=== PATIENT | female | born 1975 | race Caucasian/White ===

== ENCOUNTER 2017-11-26 06:41 | Emergency (ER) | payer MEDICAID ==
[2017-11-26 06:51] VITALS: BP 123/86
--- NOTE | 2017-11-26 07:13 | ED Physician Documentation ---
PD HPI HEENT - Stated complaint Stated Complaint: RT SIDE JAW/TOOTH PX - Chief complaint Chief Complaint: Heent - History obtained from History obtained from: Patient - History of Present Illness Timing - onset: How many days ago (2-3) Timing - duration: Days Timing - details: Gradual onset, Still present Location: Tooth (right upper) Worsens: Swalllowing, Temperatures, Other (chewing) Associated symptoms: No: Fever, Swollen nodes, Facial swelling Similar symptoms before: Diagnosis (has had dental caries and "bad teeth" for awhile and has had infections at times.) Recently seen: Not recently seen Review of Systems Constitutional: denies: Fever, Chills, Myalgias Nose: denies: Rhinorrhea / runny nose, Congestion Throat: reports: Dental pain / toothache. denies: Sore throat Cardiac: denies: Chest pain / pressure Respiratory: denies: Dyspnea PD PAST MEDICAL HISTORY - Past Medical History Cardiovascular: None Respiratory: None Neuro: None Endocrine/Autoimmune: None - Present Medications Home Medications: Ambulatory Orders Medication Instructions Recorded Confirmed Clindamycin HCl [Cleocin HCl] 300 mg PO TID #21 capsule 11/26/17 Naproxen 375 mg PO BID #20 tablet 11/26/17 Tramadol HCl 50 mg PO Q6H PRN #20 tablet 11/26/17 - Allergies Allergies/Adverse Reactions: Allergies Allergy/AdvReac Type Severity Reaction Status Date / Time No Known Drug Allergies Allergy Verified 11/26/17 06:49 PD ED PE NORMAL - Vitals Vital signs reviewed: Yes - General General: Alert and oriented X 3, No acute distress, Well developed/nourished - HEENT HEENT: Pharynx benign. No: Dentition benign (significant caries and teeth broken, many to gumline. Right upper tooth base with tenderness and some redness of gum. No abscess felt. ) - Neck Neck: Supple, no meningeal sign, No adenopathy - Cardiac Cardiac: RRR, No murmur - Respiratory Respiratory: Clear bilaterally Results - Vitals Vitals: Vital Signs - 24 hr 11/26/17 06:45 Temperature 37.0 C Heart Rate 79 Respiratory 16 Rate Blood Pressure 123/86 H O2 Saturation 100 Oxygen O2 Source Room air PD MEDICAL DECISION MAKING - ED course Complexity details: considered differential, d/w patient - Sepsis Event Vital Signs: Vital Signs - 24 hr 11/26/17 06:45 Temperature 37.0 C Heart Rate 79 Respiratory 16 Rate Blood Pressure 123/86 H O2 Saturation 100 Oxygen O2 Source Room air Departure - Departure Disposition: 01 Home, Self Care Clinical Impression: Dental infection Condition: Stable Record reviewed to determine appropriate education?: Yes Instructions: ED Abscess Dental Follow-Up: Jun Dawson DDS [Provider Admit Priv/Credential] - [facility] [Provider Group] Prescriptions: Clindamycin HCl [Cleocin HCl] 300 mg PO TID #21 capsule Naproxen 375 mg PO BID #20 tablet Tramadol HCl 50 mg PO Q6H PRN #20 tablet PRN Reason: Pain Comments: Rinse the teeth area and gums with antiseptic mouthwash a few times a day. This gets rid of some of the germs near the surface. Clindamycin antibiotic 3 times daily for the next week for the infection in the tooth base. Naproxen twice daily for inflammation. Add Tylenol or tramadol if needed for pain. Follow-up with dentist or oral surgeon is soonest appointments are available. Hopefully the current pain will improve with the above medication but subsequent infections are both predictable and preventable. Discharge Date/Time: 11/26/17 07:47
[2017-11-26] MEDS ORDERED: NAPROXEN 250 MG TABLET PO STA (07:23)
[2017-11-26] MEDS ORDERED: traMADol 50 MG TABLET PO STA (07:23)
[2017-11-26] MEDS ORDERED: CLINDAMYCIN 150 MG CAPSULE PO STA (07:23)
== END 2017-11-26 07:47 | disposition home or self-care (01) ==
LOC: ED 06:41
DX: K04.7 Periapical abscess without sinus (principal)
CPT/HCPCS: 99283; A9270